=== PATIENT | female | born 1970 | race Caucasian/White ===

== ENCOUNTER → 2017-11-13 16:09 | Outpatient (CLI) | payer BC, SELFPAY | PROVIDERS: Family Provider Family Medicine; PCP Family Medicine; Visit Provider Family Medicine | DX: L02.91 Cutaneous abscess, unspecified (principal) | CPT/HCPCS: 87070; 87075; 87077; 87147; 87186; 87205 ==

== ENCOUNTER → 2017-11-19 09:15 | Outpatient (CLI) | payer BC, SELFPAY ==
[2017-11-19 10:21] LABS: Cholesterol 185 mg/dL (140-199); Glucose 103 mg/dL (70-100); HDL Cholesterol 93 mg/dL (40-60); LDL Cholesterol Calculated 86 mg/dL (<100); Triglycerides 32 mg/dL (35-150)
[2017-11-19 12:04] LABS: Thyroid Stimulating Hormone 3.37 uIU/mL (0.47-4.68)
[2017-11-24 19:32] LABS: Estrogen 74.1 pg/mL
== END ==
PROVIDERS: PCP Family Medicine; Visit Provider Family Medicine
DX: Z83.3 Family history of diabetes mellitus (principal); Z83.42 Family history of familial hypercholesterolemia; N95.1 Menopausal and female climacteric states
CPT/HCPCS: 36415; 80061; 82672; 82947; 83001; 83002; 84146; 84443

== ENCOUNTER → 2019-02-16 14:56 | Outpatient (CLI) | payer BC, SELFPAY ==
--- NOTE | 2019-02-16 | DI.MG.S_ITS ---
BILATERAL DIGITAL SCREENING MAMMOGRAM 3D/2D WITH CAD: 02/16/2019 CLINICAL: Routine screening. Comparison is made to exams dated: 06/26/2017 mammogram - [facility], 10/06/2013 mammogram, and 01/12/2012 mammogram - [facility]. The tissue of both breasts is extremely dense, which lowers the sensitivity of mammography. Current study was also evaluated with a Computer Aided Detection (CAD) system. No significant masses, calcifications, or other findings are seen in either breast. There has been no significant interval change. IMPRESSION: NEGATIVE There is no mammographic evidence of malignancy. A 1 year screening mammogram is recommended. This exam was interpreted at Station ID: [id number]. NOTE: For mammograms, a report in lay terms will be sent to the patient. Approximately 15% of breast malignancies will not be visualized mammographically. In the management of a palpable breast mass, a negative mammogram must not discourage biopsy of a clinically suspicious lesion. Electronically Signed By: Radha jeronimo/miranda:02/17/2019 15:45:19 letter sent: Normal Exam ACR BI-RADS Category 1: Negative 3341F
== END ==
PROVIDERS: PCP Family Medicine; Visit Provider Family Medicine
DX: Z12.31 Encounter for screening mammogram for malignant neoplasm of breast (principal)
CPT/HCPCS: 77063; 77067

== ENCOUNTER → 2019-09-07 14:49 | Outpatient (CLI) | payer BC, SELFPAY ==
[2019-09-09 14:36] LABS: COVID19 Sendout Not Detected (Not Detected)
== END ==
PROVIDERS: PCP Family Medicine; Visit Provider Family Medicine
DX: R05 Cough (principal)
CPT/HCPCS: 87635

== ENCOUNTER → 2020-04-18 14:35 | Outpatient (CLI) | payer BC, SELFPAY ==
[2020-04-18 16:44] LABS: Progesterone, Total 0.54 ng/mL
[2020-04-18 16:56] LABS: TSH w/ Reflex to FT4 1.99 uIU/mL (0.47-4.68)
[2020-04-23 14:43] LABS: Estrogen 79 pg/mL (.)
== END ==
PROVIDERS: PCP Family Medicine; Referring Provider Family Medicine; Visit Provider Family Medicine
DX: N91.2 Amenorrhea, unspecified (principal)
CPT/HCPCS: 36415; 82672; 83001; 83002; 84144; 84443

== ENCOUNTER → 2020-05-29 16:03 | Outpatient (CLI) | payer BC, SELFPAY ==
[2020-05-29] MEDS: COVID-19 VACC #1, MRNA(MOD) 100 MCG/0.5 ML VIAL IM (16:13)
== END ==
PROVIDERS: PCP Family Medicine; Visit Provider Internal Medicine
DX: Z23 Encounter for immunization (principal)
CPT/HCPCS: 0011A; 91301

== ENCOUNTER → 2020-06-27 12:06 | Outpatient (CLI) | payer BC, SELFPAY ==
[2020-06-27] MEDS: COVID-19 VACC #2, MRNA(MOD) 100 MCG/0.5 ML VIAL IM (12:14)
== END ==
PROVIDERS: PCP Family Medicine; Visit Provider Internal Medicine
DX: Z23 Encounter for immunization (principal)
CPT/HCPCS: 0012A; 91301

== ENCOUNTER → 2022-03-22 10:36 | Outpatient (CLI) | payer BC, SELFPAY ==
--- NOTE | 2022-03-22 | DI.MG.S_ITS ---
BILATERAL DIGITAL SCREENING MAMMOGRAM 3D/2D WITH CAD: 03/22/2022 CLINICAL: Routine screening. Comparison is made to exams dated: 02/16/2019 mammogram, 06/26/2017 mammogram - [facility], and 10/06/2013 mammogram - [facility]. Both breasts are extremely dense, which lowers the sensitivity of mammography (category d />75% glandular tissue). Current study was also evaluated with a Computer Aided Detection (CAD) system. No significant masses, calcifications, or other findings are seen in either breast. There has been no significant interval change. IMPRESSION: NEGATIVE There is no mammographic evidence of malignancy. A 1 year screening mammogram is recommended. This exam was interpreted at Station ID: [id number]. NOTE: For mammograms, a report in lay terms will be sent to the patient. Approximately 15% of breast malignancies will not be visualized mammographically. In the management of a palpable breast mass, a negative mammogram must not discourage biopsy of a clinically suspicious lesion. Electronically Signed By: David paiz/miranda:03/24/2022 09:13:45 letter sent: Normal Exam ACR BI-RADS Category 1: Negative 3341F
== END ==
PROVIDERS: PCP Family Medicine; Referring Provider Family Medicine; Visit Provider Family Medicine
DX: Z12.31 Encounter for screening mammogram for malignant neoplasm of breast (principal)
CPT/HCPCS: 77063; 77067

== ENCOUNTER → 2023-04-13 14:50 | Outpatient (CLI) | payer BC, SELFPAY ==
--- NOTE | 2023-04-13 | DI.MG.S_ITS ---
BILATERAL DIGITAL SCREENING MAMMOGRAM 3D/2D WITH CAD: 04/13/2023 CLINICAL: Routine screening. Comparison is made to exams dated: 03/22/2022 mammogram, 02/16/2019 mammogram, and 06/26/2017 mammogram - [facility]. Both breasts are extremely dense, which lowers the sensitivity of mammography (category d />75% glandular tissue). Current study was also evaluated with a Computer Aided Detection (CAD) system. No significant masses, calcifications, or other findings are seen in either breast. There has been no significant interval change. IMPRESSION: NEGATIVE There is no mammographic evidence of malignancy. A 1 year screening mammogram is recommended. Based on the Tyrer Cuzick model (a risk assessment model) the patient's lifetime risk is 17.7% and her 10 year risk is 4.7%. According to the ACR, ACS, and NCCN guidelines, an annual breast MRI exam along with mammogram is recommended if the patient's lifetime risk is 20% or greater. This exam was interpreted at Station ID: [id number]. NOTE: For mammograms, a report in lay terms will be sent to the patient. Approximately 15% of breast malignancies will not be visualized mammographically. In the management of a palpable breast mass, a negative mammogram must not discourage biopsy of a clinically suspicious lesion. Electronically Signed By: Mabel mathur/miranda:04/13/2023 16:26:11 letter sent: Normal Exam ACR BI-RADS Category 1: Negative 3341F
== END ==
PROVIDERS: PCP Family Medicine; Referring Provider Family Medicine; Visit Provider Family Medicine
DX: Z12.31 Encounter for screening mammogram for malignant neoplasm of breast (principal); R92.343 Mammographic extreme density, bilateral breasts
CPT/HCPCS: 77063; 77067

== ENCOUNTER → 2024-08-27 12:55 | Outpatient (CLI) | payer OTHER, SELFPAY | PROVIDERS: PCP Family Medicine; Visit Provider Nurse Practitioner Family | DX: S01.302A Unspecified open wound of left ear, initial encounter (principal) | CPT/HCPCS: 87070; 87075; 87205 ==

== ENCOUNTER → 2024-10-11 11:18 | Outpatient (CLI) | payer OTHER, SELFPAY ==
--- NOTE | 2024-10-11 11:19 | DI.RAD.S_ITS ---
PROCEDURE: XR DEXA AXIAL SKELETON INDICATIONS: screening COMPARISON: None. FINDINGS: Lumbar Spine: Bone mineral density 0.895 g/cm2, T score -1.4, baseline. Left Femoral Neck: Bone mineral density 0.702 g/cm2, T score -1.3. Left Hip: Bone mineral density 0.818 g/cm2, T score -1, baseline. Fracture Risk Calculation (when applicable): 10-year fracture risk of a major osteoporotic fracture 5.7 percent and of a hip fracture 0.4 percent. (T score greater or equal to -1.0 to: NORMAL) (T score from -1.1 to -2.4: OSTEOPENIA) (T score less than or equal to -2.5: OSTEOPOROSIS) IMPRESSION: Osteopenia. Follow-up guidelines as follows: Osteoporosis: Consider a repeat DEXA and Vertebral Fracture Assessment (VFA) exam in 2 years or sooner if medically necessary, to reassess this patient's status. Osteopenia: Consider a repeat DEXA in 2-3 years to reassess this patient's status, or if there is a new clinical indication. Normal: Consider a repeat DEXA in 5 years or sooner, or if there is a new clinical indication. All treatment decisions require clinical judgment and consideration of individual patient factors, including patient preferences, comorbidities, previous drug use, risk factors not captured in the FRAX model (e.g., frailty, falls, vitamin D deficiency, increased bone turnover, interval significant decline in bone density ) and possible under- or over-estimation of fracture risk by FRAX. In addition, the NOF Guide recommends that FDA-approved medical therapies be considered in postmenopausal women and men age >= 50 years with a: * Hip or vertebral (clinical or morphometric) fracture * T-score of <=-2.5 at the spine or hip * Ten-year fracture probability by FRAX of >= 3% for hip fracture or >=20% for major osteoporotic fracture. Dictated by: González Ramos M.D. on 10/11/2024 at 14:18 Approved by: González Ramos M.D. on 10/11/2024 at 14:19
== END ==
PROVIDERS: PCP Family Medicine; Referring Provider Family Medicine; Visit Provider Family Medicine
DX: M85.89 Other specified disorders of bone density and structure, multiple sites (principal)
CPT/HCPCS: 77080

== ENCOUNTER → 2024-12-19 13:27 | Outpatient (CLI) | payer OTHER, SELFPAY ==
--- NOTE | 2024-12-19 13:28 | DI.MG.S_ITS ---
MM diagnostic mammo BI, US breast RT limited: 12/19/2024 BI-RADS: 3 CLINICAL: 54-year old female for bilateral diagnostic mammogram and right diagnostic breast ultrasound. Tyrer-Cuzick lifetime risk of 13.0%. No personal or first- degree family history of breast cancer. The patient reports an enlarged lymph node (6 months) in the right axilla. Patient's clinical note mentions a possible lump in the 9 o'clock axis in the right breast. PRIOR EXAMS 04/13/2023, 03/22/2022, 02/16/2019, 06/26/2017. MAMMOGRAPHY TECHNIQUE: 2D and 3D (tomosynthesis) digital mammographic views obtained, with additional images as needed for full coverage. Current study was also evaluated with a Computer Aided Detection (CAD) system. ULTRASOUND TECHNIQUE: Real-time casas scale and color doppler imaging of the area of clinical interest was performed with image documentation. TARGETED Right Breast Ultrasound: Real-time ultrasound exam was performed focused to area of clinical and/or imaging concern. DENSITY D. The breasts are extremely dense, which lowers the sensitivity of mammography. MAMMOGRAPHY FINDINGS Right (finding-1): Outer at 9:00, Middle depth: There is no suspicious mammographic finding to account for clinicians' concern of a palpable lump. No suspicious mass, asymmetry, microcalcification, or other abnormality seen. Right (finding-2): MLO only, Axilla: There is no suspicious mammographic finding to account for concern by the patient of a palpable lump. No suspicious mass, asymmetry, microcalcification, or other abnormality seen. Left: No suspicious mass, asymmetry, microcalcification, or other abnormality seen. ULTRASOUND FINDINGS Right: Outer at 9:00, 2 cm from nipple, measuring 0.3 x 0.2 x 0.3 cm: There is an oval, circumscribed, hypoechoic cyst vs solid mass present. Doppler shows no vascularity. This is an incidental finding. Right: Lower Outer at 7:00, 1 cm from nipple, measuring 0.7 x 0.4 x 0.7 cm: There is an oval, circumscribed, hypoechoic mass. Doppler shows no vascularity. This is an incidental finding. Right (finding-2): Axilla: There are multiple normal-appearing lymph nodes. Doppler shows no vascularity. Right (finding-1): Outer at 9:00: The entire 9 o'clock axis was scanned from the nipple to the lateral margin of the breast. There is no sonographic abnormality to account for clinicians' concern of a palpable lump. IMPRESSION: Right (CvS): Outer at 9:00, 2 cm from nipple, measuring 0.3 x 0.2 x 0.3 cm * Probably Benign. Right (Mass): Lower Outer at 7:00, 1 cm from nipple, measuring 0.7 x 0.4 x 0.7 cm * Probably Benign. Left * No evidence of malignancy. RECOMMENDATIONS Right: Outer at 9:00, 2 cm from nipple * Six month followup with diagnostic ultrasound. Right: Lower Outer at 7:00, 1 cm from nipple * Six month followup with diagnostic ultrasound. Right * Clinical follow-up is recommended, and further management of palpable abnormalities or other focal signs or symptoms should be based on the results of clinical evaluation. If palpable abnormality or other concerning symptom persists or progresses, further clinical evaluation should be considered. COMMENTS: Findings and recommendations were conveyed to the patient during today's evaluation. OVERALL ASSESSMENT CATEGORY BI-RADS-3: Probably Benign. ELECTRONICALLY SIGNED: Charlette Garcia M.D. on 12/19/2024 at 03:32:32 PM PT Interpreting Station ID: [id number]
== END ==
LOC: MAMMO 13:28
PROVIDERS: PCP Family Medicine; Referring Provider Family Medicine; Visit Provider Family Medicine
DX: N63.13 Unspecified lump in the right breast, lower outer quadrant (principal); R92.30 Dense breasts, unspecified
CPT/HCPCS: 76642; 77066; G0279